=== PATIENT | female | born 1980 | race Caucasian/White ===

== ENCOUNTER 2016-11-17 11:22 | Emergency (ER) | payer OTHER ==
--- NOTE | ~2016-11-17 | CT4 ---
[facility] A Service of [facility] RADIOLOGY TEXT RESULTS PATIENT: STEPHANIE CANTU LOCATION: SED : 82 UNIT #: [id number] AGE: [address]: Tom Dawson MD SEX: F ORDER DR: [id number] [place] [id number] E MR#: [id number] Acc #: [id number] NAME: STEPHANIE CANTU : 1980 SEX: F STUDY DATE/TIME: 11/17/2016 13:46 UNIT: SED ROOM: STUDY DESCRIPTION: CT Abd and Pelv Wo Cont Attending Physician: Tom Dawson M.D. Referring Physician: Paty Ferguson A.P.R.N. Ordering Physician: Tom Dawson M.D. Primary Care Physician: Florence Butler M.D. MEDICAL IMAGING REPORT This report is preliminary unless electronic signature is present. EXAM CT abdomen and pelvis 11/17/2016 INDICATIONS Abdominal pain with vaginal discharge for 3 days. Fever and flank pain as well. Pain is 07:10. TECHNIQUE Axial images were obtained through the abdomen and pelvis following IV contrast administration. Multiplanar reformats were obtained. This CT exam was performed with one or more of the following radiation dose reduction techniques: automatic exposure control, adjustment of mA and/or kV according to patient size, and iterative reconstruction. COMPARISON STUDIES Comparison is made with 11/21/2007. FINDINGS CT ABDOMEN: The initial scan through the abdomen and pelvis is degraded by excessive patient motion and is nearly nondiagnostic. A repeat scan was obtained after some delay. Lung bases are clear. The gallbladder is unremarkable. There is indistinctness of the fat in the yadira hepatis which is fairly poorly characterized. However, it does appear to extend out along the falciform ligament anteriorly. Unfortunately, due to timing of the contrast bolus, the pancreas is not well evaluated in this location. This stranding could be secondary to pancreatitis in the pancreatic head and uncinate process. Primary duodenitis could potentially cause this. Correlation with laboratory data suggested. Right upper quadrant ultrasound may prove beneficial in the event of potential gallbladder pathology. The solid organs are otherwise within normal limits. The remainder of the unopacified GI tract is unremarkable. [facility] A Service of [facility] RADIOLOGY TEXT RESULTS PATIENT: STEPHANIE CANTU LOCATION: [facility] : 82 UNIT #: [id number] AGE: [address]: Tom Dawson MD SEX: F ORDER DR: CT PELVIS: Urinary bladder is normal. Solid pelvic organs are normal. The appendix is normal, as is the remainder of the unopacified GI tract. No free fluid. Note is made of degenerative disc disease at least at L4-5 and L5-S1. IMPRESSION 1. Unfortunately, the patient moved during the initial contrast enhanced run and those images are essentially nondiagnostic. A delayed run was obtained. 2. There is loss of the normal fat planes with some strandy appearance in the yadira hepatis which extends out along the falciform ligament. This is nonspecific, especially given timing of the bolus. However, differential considerations would include pancreatitis in the head and uncinate process, duodenitis, or potentially even cholecystitis although the gallbladder has a grossly normal appearance. Correlation with laboratory data recommended. Right upper quadrant ultrasound may prove beneficial. 3. The remainder of the abdomen and pelvis CT is normal, including the appendix. The solid pelvic organs appear normal. Dictated by... Gorge Carter Jr., M.D. THIS IS AN ELECTRONICALLY VERIFIED REPORT Gorge Carter Jr., M.D. at 11/17/2016 9:28 PM Ange TD: 11/17/2016 17:53 JOB #: [id number] MEDICAL IMAGING REPORT Page 1 of 1
[2016-11-17 11:15] LABS: URINE APPEARANCE CLEAR; URINE BLOOD 1+ (NEG); URINE COLOR YELLOW; URINE GLUCOSE NEG (NORM); URINE KETONE NEG (NEG); URINE LEUKOCYTE ESTERASE NEG (NEG); URINE NITRATE NEG (NEG); URINE PROTEIN NEG (NEG); URINE SOURCE CLEAN CATCH; URINE SPECIFIC GRAVITY 1.015 (1.003-1.035)
[2016-11-17 11:17] LABS: MICRO INDICATED? YES
[2016-11-17 11:18] LABS: URINE BILIRUBIN POS (NEG)
[2016-11-17 11:21] LABS: CULTURE INDICATED? NO; URINE BACTERIA NEG (NEG); URINE RBC 0-2 /[HPF] (0-2); URINE SQUAMOUS EPITHELIAL CELL MODERATE /[HPF]; URINE WBC NEG /[HPF] (0-5)
[~2016-11-17 11:22] MED LIST: ABILIFY30 MG PO; ACETAMINOPHEN PO; AMITRIPTYLINE H50 MG PO; AMITRYPTYLINE PO; ASPIRIN81 M1 PO; ATIVAN PO; BACTRIM DS TABL1 TA1 PO; CERTAGEN PO; CYMBALTA PO; CYMBALTA30 MG PO; DESYREL100 MG DOB; DICLOFENAC PO; FLEXERIL PO; FLEXERIL10 MG PO; FUROSEMIDE40 MG PO; HCTZ PO; HYDROCHLOROTHIA25 MG PO; IBUPROFEN PO; IBUPROFEN800 MG PO; INDERAL20 MG PO; KLONOPIN PO; KLONOPIN1 MG PO; LASIX PO; LORTAB 10-3251 EACH PO; LORTAB 5/500 TA1 TA1 PO; LORTAB 7.5-5001 TAB PO; LYRICA PO; LYRICA75 MG PO; MOTRIN400 MG PO; MULTI-DAY VITAM1 TAB PO; MYLANTA LIQUID355 M1 PO; NEURONTIN PO; NEURONTIN800 MG DOB; NEURONTIN800 MG PO; NICOTINE TRANSD21 MG TOP; NITROGLYGERIN0.4 MG SL; NO MEDICATIONS; NORCO 7.5-3251 EACH PO; PAIN RELIEF325 MG PO; PATANOL5 ML OP; PERCOCET PO; PREDNISONE PO; PROTONIX PO; PROZAC PO; TOPAMAX PO; TOPAMAX50 MG PO; ULTRAM PO; VICODIN 5/500 T1 TAB PO; VOLTAREN5 ML PO; VOLTAREN75 MG PO
[2016-11-17 11:27] LABS: BASOPHIL# 0.1 X10e3 (0-0.3); BASOPHIL% 2.1 % (0-2.5); EOSINOPHIL# 0.1 X10e3 (0-0.7); EOSINOPHIL% 3.1 % (0.0-7.0); HEMOGLOBIN 15.1 gm/dL (12.0-16.0); LYMPHOCYTE# 0.8 X10e3 (1.0-3.5); LYMPHOCYTE% 24.6 % (17.0-45.0); MEAN CORPUSCULAR HEMOGLOBIN 30.3 PG (28-34); MEAN CORPUSCULAR HGB CONC 32.9 g/dL (30-36); MEAN PLATELET VOLUME 8.8 FL (6.5-11.5); MONOCYTE# 0.4 X10e3 (0-1.0); MONOCYTE% 10.8 % (3.0-12.0); NEUTROPHIL% 59.4 % (40-75); PLATELET COUNT 143 X10e3 (140-420); RED CELL DISTRIBUTION WIDTH 13.8 % (11.0-15.5); WHITE BLOOD COUNT 3.3 X10e3 (4.0-10.5)
[2016-11-17 11:33] LABS: DIFF IND NO
[2016-11-17 11:57] LABS: ALBUMIN SERUM 3.9 g/dL (3.5-5.0); BILIRUBIN, DIRECT 3.2 mg/dL (0.0-0.2); BILIRUBIN,INDIRECT 1.4 mg/dL (0.0-0.9); BILIRUBIN,TOTAL 4.6 mg/dL (0.2-2.0); BUN/CREATININE RATIO 46.66; CALCIUM SERUM 8.7 mg/dL (8.4-10.2); CREATININE SERUM 0.3 mg/dL (0.6-1.4); GLOM FILT RATE Estimated 149.4 mL/min (>60); POTASSIUM 3.8 mmol/L (3.5-5.1); PROTEIN TOTAL SERUM 7.2 g/dL (6.0-8.3)
[2016-11-18 20:16] LABS: CHLAMYDIA TRACH Not Detected (Not Detected); N GONOR Not Detected (Not Detected)
[2016-11-21 21:55] LABS: HA AB IGM (HEPPAN) Nonreactive (Nonreactive); HB CORE AB IGM (HEPPAN) Nonreactive (Nonreactive); HB S AG (HEPPAN) Nonreactive (Nonreactive); HEP C AB (HEPPAN) Reactive (Nonreactive)
== END 2016-11-17 16:12 | disposition left against medical advice (07) ==
LOC: SED 11:22
PROVIDERS: Emergency Medicine; Nurse Practitioner
DX: R74.0 Nonspecific elevation of levels of transaminase and lactic acid dehydrogenase [LDH] (principal); I10 Essential (primary) hypertension; Z98.51 Tubal ligation status; F17.210 Nicotine dependence, cigarettes, uncomplicated
CPT/HCPCS: 36415; 74176; 80048; 80074; 80076; 81003; 82150; 83690; 84703; 85025; 87210; 87491; 87522; 87591; 87808; 87905; 96361; 96374; 96375; 99291; C9113; G0480; J1200; J1885

== ENCOUNTER 2016-11-17 23:19 | Inpatient (IN) | payer OTHER ==
--- NOTE | ~2016-11-17 | US5 ---
[facility] A Service of [facility] RADIOLOGY TEXT RESULTS PATIENT: STEPHANIE CANTU LOCATION: [facility] 303- : 82 UNIT #: [id number] AGE: [address]: Vonda Hughes MD SEX: F ORDER DR: [id number] [facility] [address] [facility]. [place], [place] [address] [id number] I MR#: [id number] Acc #: [id number] NAME: STEPHANIE CANTU : 1980 SEX: F STUDY DATE/TIME: 11/18/2016 9:13 UNIT: A U ROOM: [facility] STUDY DESCRIPTION: US Abdominal Complete Attending Physician: Vonda Hughes M.D. Ordering Physician: Rainer Felix M.D. Primary Care Physician: Florence Butler M.D. MEDICAL IMAGING REPORT This report is preliminary unless electronic signature is present EXAM Abdominal sonogram HISTORY Elevated liver enzymes. Abdominal pain in the epigastric area for the past 5 days with nausea and vomiting. TECHNIQUE Ultrasound evaluation was performed with francis-scale and color-flow imaging with Doppler spectral waveform analysis. FINDINGS In the liver, there is a small hyperechoic mass in the right hepatic lobe measuring 1 cm likely representing hemangioma given its echo pattern. There is no evidence of suspicious liver mass or ductal dilatation. The pancreas is normal in size. There is no evidence of ascites. The gallbladder is contracted and contains multiple shadowing stones. The common bile duct diameter is 2-3 mm. The right kidney shows no evidence of mass, cyst or hydronephrosis. Portal vein and inferior vena cava flow is normal with normal Doppler. The left kidney is not obstructed. The spleen is normal in size. IMPRESSION Cholelithiasis. A negative Martin's sign. No fluid around the gallbladder. No evidence of bile duct dilatation. Small incidental liver lesion likely hemangioma. Otherwise negative study. Dictated by... Gorge Olivares M.D. [facility] A Service of [facility] RADIOLOGY TEXT RESULTS PATIENT: STEPHANIE CANTU LOCATION: [facility] 303-01 : 82 UNIT #: [id number] AGE: [address]: Vonda Hughes MD SEX: F ORDER DR: THIS IS AN ELECTRONICALLY VERIFIED REPORT Gorge Olivares M.D. at 11/21/2016 9:46 AM Nahum TD: 11/18/2016 21:42 JOB #: [id number] MEDICAL IMAGING REPORT Page 1 of 1 COPY
--- NOTE | ~2016-11-17 | HP ---
Unit #: [id number] #: [id number] Patient: STEPHANIE CANTU [id number] [address] [place], [place] [address] [id number] I MR#: [id number] NAME: STEPHANIE CANTU ROOM: 303 Age: 36 Sex: F Admission Date: 11/18/2016 : 1980 Attending Physician: Vonda Hughes M.D. Primary Care Physician: Florence Butler M.D. HISTORY AND PHYSICAL CHIEF COMPLAINT Abdominal pain, nausea, vomiting, abnormal LFT. DISCUSSION This is a 36-year-old female, who has a past medical history significant for history of hepatitis C, anxiety/depression, fibromyalgia, chronic pain syndrome, history of opiate dependence in the past, used to be on heroin but clean for two years, history of arthritis, tobacco abuse. She presented to the [facility] emergency room with chief complaint of having abdominal pain, nausea, vomiting. She was found to have abnormal LFT, AST was 2,053, ALT 3,105, and she was advised for admission, she left AGAINST MEDICAL ADVICE, and again she came here to [facility] emergency room with similar symptoms, abdominal pain and fever. She said that she had been having fever for the last three days and she had been having severe upper abdominal pain which she described at more intensity, constant, she described also nausea, vomiting x3 times today, denied chest pain, denies diarrhea, constipation, or any other complaint. PAST MEDICAL HISTORY 1. History of hepatitis C. 2. Depression/anxiety. 3. Fibromyalgia. 4. Chronic pain disorder. 5. History of opiate dependence with heroin use but she said she had been clean for two years. 6. History of arthritis. PAST SURGICAL HISTORY 1. History of section. 2. Tubal ligation. ALLERGIES No known drug allergies. HOME MEDICATIONS She takes propranolol, Topamax, ibuprofen. FAMILY HISTORY Significant for history of diabetes in the family, leukemia in her father. SOCIAL HISTORY She denies alcohol, she smokes one pack per day, she used to use marijuana on a daily basis. She used to use methamphetamine and heroin but she said Unit #: [id number] #: [id number] Patient: STEPHANIE CANTU she has been clean for two years. REVIEW OF SYSTEMS All review of systems negative except as in the history of present illness. PHYSICAL EXAMINATION GENERAL: Young female lying in the bed comfortably, currently not in any distress. She is alert, awake, and oriented x3, not in any distress. VITAL SIGNS: Current vitals are the following, temperature 98.5, heart rate 115, respiratory rate 16, blood pressure 130/97. HEENT EXAMINATION: Pupils equal reactive to light and accommodation. NECK: Supple. No jugular venous distention. HEART: S1 and S2, regular rate and rhythm. LUNGS: Clear to auscultation bilaterally. No rhonchi. No wheezing. ABDOMEN: Soft, mild epigastric tenderness. No guarding. No rigidity. EXTREMITIES: Inspection normal. No cyanosis, no clubbing, and no edema. NEUROLOGIC: No focal neurologic deficit. DIAGNOSTIC STUDIES LABORATORY: Laboratory workup in the following, Tylenol level she has less than 10. Electrolytes, sodium 138, potassium 3.8, chloride 104, glucose 100, BUN 14, creatinine 0.3, AST 2,053, ALT 3,105, alkaline phosphatase 208, total bilirubin 4.6, direct 3.2, indirect 1.4. Amylase 15, lipase 32. White count 3.3, hemoglobin 15, hematocrit 46, platelets 143. Urinalysis is negative. test negative. IMAGING: She had a CT scan of the abdomen which is nondiagnostic secondary to patient moved during initial contrast enhanced, is inconclusive CT scan. ASSESSMENT/PLAN 1. Abdominal pain with acute hepatitis. Admit the patient. The patient started on morphine for pain control, IV Protonix and IV fluids. Ask Dr. Cannon to evaluate, will get ultrasound of the gallbladder and liver. 2. History of hepatitis C, she has never been treated so far. 3. History of anxiety/depression. 4. Fibromyalgia. 5. Chronic pain syndrome. 6. History of opiate dependence but she said that she had been not using heroin for two years now. 7. History of arthritis. 8. Tobacco and marijuana use. 9. DVT prophylaxis, will place the patient on SCD. Dictated by Viky Wagoner TD: 11/18/2016 11:39 JOB #: [id number] Unit #: [id number] #: [id number] Patient: STEPHANIE CANTU HISTORY AND PHYSICAL Page 1 of 1 X X HISTORY AND PHYSICAL
--- NOTE | ~2016-11-17 | CO ---
Unit #: [id number] #: [id number] Patient: STEPHANIE NORMAN [id number] [facility] [address] [place], [place] [address] [id number] I MR#: [id number] NAME: STEPHANIE NORMAN ROOM: 303 Age: 36 Sex: F Admission Date: 11/18/2016 : 1980 Attending Physician: Vonda Hughes M.D. Primary Care Physician: Florence Butler M.D. Consultation Date: 11/18/2016 CONSULTATION REPORT PRIMARY CARE PHYSICIAN Florence Butler M.D. REASON FOR CONSULTATION Abnormal LFTs and abdominal pain. HISTORY OF PRESENT ILLNESS Ms. Norman is a 36-year-old white female. The patient has presented with history of upper abdominal pain, which is felt in the right upper quadrant and epigastric area. She presented along with nausea and vomiting and abdominal pain to the [facility] Emergency Room and was found to have elevated transaminases. AST and ALT were 2000 and 3000 respectively and she was advised to further admission. She left against medical advice and came back [facility] for similar symptoms along with low-grade fever. She has vomited couple of times, but this is since resolved. She denies any chest pains. No history of diarrhea or change in bowel movements. PAST MEDICAL HISTORY Significant for history of anxiety and depression, fibromyalgia, history of hepatitis C. The patient says she is not aware the issues of hepatitis C. In fact, she tells me that she was seen in the [place] [facility] after being referred for having hepatitis and told she did not have one, also has chronic pain disorder, history of polysubstance abuse, in fact, she used intravenous heroin. She has been the using heroin until couple of days ago. History for arthritis. PAST SURGICAL HISTORY Included tubal ligation and section. MEDICATIONS At home, she takes Topamax, ibuprofen, and propranolol. ALLERGIES Does not have any drug allergies. FAMILY HISTORY Significant for diabetes. No family history of colon, pancreatic cancer, or liver disease. SOCIAL HISTORY She does smoke a pack of cigarette per day. She chews marijuana use and methamphetamine and heroin. Unit #: [id number] #: [id number] Patient: STEPHANIE NORMAN REVIEW OF SYSTEMS Detailed review of organ systems does not reveal any recent weight loss. No history of fever, chills, or rigors. No history of headache, seizures, chest pain, or syncope. No history of cough, expectoration, or hemoptysis. No history of dysuria, hematuria, or pyuria. No history of focal seizures or extremity weakness. Rest of the review of systems is unremarkable. PHYSICAL EXAMINATION GENERAL: She is alert and oriented, comfortable, and ambulatory. VITAL SIGNS: Stable with a temperature of 98.1, pulse are 64 per minute and regular, respiratory rate is 18, blood pressure 145/86. She weighs 177 pounds and her baseline weight has been about 180 pounds the past. HEENT: She has no pallor, icterus, lymphadenopathy, or peripheral edema. CARDIOVASCULAR: Normal heart sounds. No murmurs on auscultation. LUNGS: Reveal normal breath sounds. Good air entry. ABDOMEN: Soft, obese, and nontender. Liver and spleen are not palpable. Bowel sounds normal. DIAGNOSTIC STUDIES LABORATORY RESULTS: Shows a peak AST and ALT of 2000 and 3000 yesterday and today there is a declining trend. Alkaline phosphatase surprised to be normal at 189. Bilirubin is also normal. Albumin is 3.2. BUN and creatinine are normal. Glucose is [place] [address] and normal platelet count. The patient has relative lymphocytosis. The patient's INR is 1.0. Tox screen is positive for amphetamines, marijuana, and opiates. Urinalysis shows 1+ blood, otherwise normal. CLINICAL IMPRESSION Looking the patient's serologies, she has had hepatitis C positivity in the past on circumstances, she need to have antiviral treatment for hepatitis C and needs to be followed up at [facility], where she has been following up in the past. It is noteworthy the patient is very adamant and irritated that she was never told that she has hepatitis C and it is surprise to her. I have explained her that this is being a problem that from her records, at least she has hepatitis C positive from our records for at least 2 years may be a lot longer than that she has been using intravenous drug use for long time. Also, the issue of treatment as an urgent matter is not amenable as this is not emergent matter; however, needs to be resolved by quantitative PCR and treatment initiation, provided the patient can assure that she will not be using any percutaneous method of recreational drug use in the future. The declining trend of the transaminases suggests that the hepatitis will resolve spontaneously that the acute hepatitis part will resolve spontaneously. Thank you for asking me to see this patient. I appreciate the consult. Dictated byViky Sosa/ramesh TD: 11/22/2016 01:01 JOB #: [id number] Unit #: [id number] #: [id number] Patient: STEPHANIE NORMAN CONSULTATION REPORT Page 1 of 1 X Eduardo Cannon MD X CONSULTATION REPORT
[2016-11-18 00:40] LABS: BASOPHIL# 0.1 X10e3 (0-0.3); BASOPHIL% 0.8 % (0-2.5); DIFF IND NO; EOSINOPHIL# 0.1 X10e3 (0-0.7); EOSINOPHIL% 2.3 % (0.0-7.0); HEMATOCRIT 42.2 % (35.0-45.0); HEMOGLOBIN 13.9 gm/dL (12.0-16.0); LYMPHOCYTE% 32.2 % (17.0-45.0); MEAN CELL VOLUME 91.2 FL (83-96); MEAN CORPUSCULAR HEMOGLOBIN 30.1 PG (28-34); MEAN PLATELET VOLUME 9.6 FL (6.5-11.5); MONOCYTE# 0.6 X10e3 (0-1.0); MONOCYTE% 9.5 % (3.0-12.0); NEUTROPHIL# 3.4 X10e3 (1.5-7.1); NEUTROPHIL% 55.2 % (40-75); PLATELET COUNT 139 X10e3 (140-420); RED BLOOD COUNT 4.63 X10e (3.90-5.30); RED CELL DISTRIBUTION WIDTH 13.9 % (11.0-15.5); WHITE BLOOD COUNT 6.2 X10e3 (4.0-10.5)
[2016-11-18 01:14] LABS: ALBUMIN SERUM 3.6 g/dL (3.5-5.0); BILIRUBIN, DIRECT 2.5 mg/dL (0.0-0.2); BILIRUBIN,INDIRECT 1.4 mg/dL (0.0-0.9); BILIRUBIN,TOTAL 3.9 mg/dL (0.2-2.0); CALCIUM SERUM 8.5 mg/dL (8.4-10.2); CREATININE SERUM 0.5 mg/dL (0.6-1.4); GLOM FILT RATE Estimated 126.3 mL/min (>60); POTASSIUM 3.7 mmol/L (3.5-5.1); PROTEIN TOTAL SERUM 6.6 g/dL (6.0-8.3)
[2016-11-18 09:03] LABS: BASOPHIL# 0.1 X10e3 (0-0.3); BASOPHIL% 1.3 % (0-2.5); EOSINOPHIL# 0.1 X10e3 (0-0.7); EOSINOPHIL% 1.8 % (0.0-7.0); HEMATOCRIT 42.3 % (35.0-45.0); HEMOGLOBIN 13.7 gm/dL (12.0-16.0); LYMPHOCYTE# 3.1 X10e3 (1.0-3.5); LYMPHOCYTE% 45.6 % (17.0-45.0); MEAN CELL VOLUME 91.6 FL (83-96); MEAN CORPUSCULAR HEMOGLOBIN 29.7 PG (28-34); MEAN CORPUSCULAR HGB CONC 32.4 g/dL (30-36); MEAN PLATELET VOLUME 9.4 FL (6.5-11.5); MONOCYTE# 0.5 X10e3 (0-1.0); MONOCYTE% 7.8 % (3.0-12.0); NEUTROPHIL% 43.5 % (40-75); PLATELET COUNT 142 X10e3 (140-420); RED BLOOD COUNT 4.62 X10e (3.90-5.30); RED CELL DISTRIBUTION WIDTH 13.9 % (11.0-15.5); WHITE BLOOD COUNT 6.9 X10e3 (4.0-10.5)
[2016-11-18 09:04] LABS: DIFF IND YES
[2016-11-18 09:33] LABS: ALBUMIN SERUM 3.4 g/dL (3.5-5.0); BILIRUBIN, DIRECT 1.9 mg/dL (0.0-0.2); BILIRUBIN,TOTAL 2.9 mg/dL (0.2-2.0); BUN/CREATININE RATIO 36.66; CALCIUM SERUM 8.3 mg/dL (8.4-10.2); CREATININE SERUM 0.3 mg/dL (0.6-1.4); GLOM FILT RATE Estimated 149.4 mL/min (>60); PROTEIN TOTAL SERUM 6.4 g/dL (6.0-8.3)
[2016-11-18 09:36] LABS: ANISOCYTOSIS SL; PLATELET ESTIMATE NORMAL (NORMAL)
[2016-11-18 09:55] LABS: AMPHETAMINE POS (NEG); BARBITURATES NEG (NEG); BENZODIAZEPINES NEG (NEG); COCAINE NEG (NEG); MARIJUANA POS (NEG); OPIATES POS (NEG); TRICYCLIC ANTIDEPRESSANTS NEG (NEG); U METHADONE NEG (NEG)
[2016-11-19 05:24] LABS: HEMATOCRIT 40.3 % (35.0-45.0); HEMOGLOBIN 12.9 gm/dL (12.0-16.0); MEAN CELL VOLUME 91.4 FL (83-96); MEAN CORPUSCULAR HEMOGLOBIN 29.2 PG (28-34); MEAN PLATELET VOLUME 9.8 FL (6.5-11.5); RED BLOOD COUNT 4.41 X10e (3.90-5.30); RED CELL DISTRIBUTION WIDTH 14.1 % (11.0-15.5)
[2016-11-19 05:25] LABS: WHITE BLOOD COUNT 11.2 X10e3 (4.0-10.5)
[2016-11-19 05:30] LABS: PROTHROMBIN TIME (PATIENT) 10.2 SECONDS (9.6-11.5)
[2016-11-19 06:06] LABS: ALBUMIN SERUM 3.2 g/dL (3.5-5.0); BUN/CREATININE RATIO 13.33; CALCIUM SERUM 8.2 mg/dL (8.4-10.2); CREATININE SERUM 0.6 mg/dL (0.6-1.4); GLOM FILT RATE Estimated 118.9 mL/min (>60); PROTEIN TOTAL SERUM 5.8 g/dL (6.0-8.3)
[2016-11-19] MEDS ORDERED: INDERAL20 MG PO (13:21)
== END 2016-11-19 15:17 | disposition home or self-care (01) | DRG 442 ==
LOC: CED 23:19 → CEDOF 11-18 00:06 → C3A PCU 11-18 02:13
PROVIDERS: Emergency Medicine; Internal Medicine; Internal Medicine Gastroenterology
DX: B17.9 Acute viral hepatitis, unspecified (principal); E87.2 Acidosis; D69.6 Thrombocytopenia, unspecified; F17.200 Nicotine dependence, unspecified, uncomplicated; F41.9 Anxiety disorder, unspecified; F32.9 Major depressive disorder, single episode, unspecified; M79.7 Fibromyalgia; G89.4 Chronic pain syndrome; Z83.3 Family history of diabetes mellitus; Z80.6 Family history of leukemia; F19.10 Other psychoactive substance abuse, uncomplicated; F12.10 Cannabis abuse, uncomplicated
CPT/HCPCS: 76700; 80048; 80053; 80076; 80307; 85025; 85027; 85610; 86645; 86665; 86695; 86696; 87522; 87806; 99285; C9113; J2270; J2405

== ENCOUNTER 2017-03-25 14:01 | Inpatient (IN) | payer OTHER ==
[~2017-03-25] VITALS: Ht 157.5 cm; Wt 77.1 kg
--- NOTE | ~2017-03-25 | DS ---
Unit #: [id number] #: [id number] Patient: STEPHANIE CANTU [id number] [facility] [address] [place] [address] [id number] I MR#: [id number] NAME: STEPHANIE CANTU ROOM: 81 Age: 36 Sex: F Admission Date: 03/25/2017 : 1980 Discharge Date: 03/28/2017 Attending Physician: Luis Ba M.D. Primary Care Physician: Florence Butler M.D. DISCHARGE SUMMARY REASON FOR ADMISSION The patient is a 36-year-old white female, admitted to the hospital with complaints of depressed mood, suicidal ideation, and abuse of crack cocaine, meth, and cannabis. HOSPITAL COURSE The patient was admitted to the [address] [place] [address] unit, but transferred to the [facility] unit. Her participation within therapeutic milieu left much to be desired. The patient was initially begun on Cymbalta with the belief that this medication would be effective in addressing her symptoms of chronic pain. However, the patient at the time of discharge requested reinitiation of Prozac and BuSpar. By 03/28/2017, the patient exhibited no signs or symptoms of withdrawal. She stated that she had an appointment the following day "for housing." Discharge was ordered. FINAL DIAGNOSES Methamphetamine use disorder, cocaine use disorder, cannabis use disorder, dysthymic disorder. DISPOSITION ON DISCHARGE The patient is discharged on the following medications; Prozac 20 mg daily for depression, BuSpar 10 mg b.i.d. for anxiety. DISCHARGE INSTRUCTIONS No dietary or physical restrictions were placed on the patient at the time of discharge. FOLLOWUP Followup will take place through the auspices of community mental health resources. PROGNOSIS The patient's prognosis is considered fair. Dictated by... Luis Ba M.D. CB/vickyl TD: 03/28/2017 23:37 JOB #: [id number] Unit #: [id number] #: [id number] Patient: STEPHANIE CANTU DISCHARGE SUMMARY Page 1 of 1 X Luis Ba MD X DISCHARGE SUMMARY
--- NOTE | ~2017-03-25 | HP ---
Unit #: [id number] #: [id number] Patient: STEPHANIE CANTU [id number] [place] [address] [id number] I MR#: [id number] NAME: STEPHANIE CANTU ROOM: P181 Age: 36 Sex: F Admission Date: 03/25/2017 : 1980 Attending Physician: Luis Ba M.D. Admitting Physician: Luis Ba M.D. Primary Care Physician: Florence Bulter M.D. HISTORY AND PHYSICAL HISTORY OF PRESENT ILLNESS Stephanie is a 36 year old, [facility] because of her polysubstance abuse which includes IV meth, crack cocaine, and marijuana. PAST MEDICAL HISTORY 1. Long history of illicit substance abuse to include IV methamphetamine. 2. Hepatitis C. 3. High blood pressure. PAST SURGICAL HISTORY 1. section x3. 2. Tubal ligation. ALLERGIES No known drug allergies. SOCIAL HISTORY She smokes one pack per day, drinks alcohol on occasion, and admits to a history of illicit substance abuse to include IV drugs, and smoking crack cocaine. FAMILY HISTORY Medically noncontributory. REVIEW OF SYSTEMS CONSTITUTIONAL: No fever or chills. HEENT: Denies any sore throat, ear pain or runny nose. CARDIOVASCULAR: Denies chest pain, irregular heart rhythm or palpitations. CHEST: Denies shortness of breath or cough. No hemoptysis. GASTROINTESTINAL: Denies nausea, vomiting, diarrhea or chronic constipation. ENDOCRINE: Denies history of increased thirst or urination. No recent significant weight loss or gain. GENITOURINARY: Denies dysuria, frequency, or hematuria. SKIN: Denies any rashes. HEMATOLOGIC: Denies history of increased bleeding or bruising. MUSCULOSKELETAL: Denies any hot, swollen joints. No generalized muscle pain. NEUROLOGIC: Denies problems with vision or speech. No frequent, severe headaches. No numbness, tingling or weakness in any extremities. Denies loss of bladder or bowel control. CURRENT MEDICATIONS Unit #: [id number] #: [id number] Patient: STEPHANIE CANTU 1. Detox protocol 2. Cymbalta 30 mg daily 3. Singulair 10 mg daily 4. Topamax 50 mg b.i.d. 5. Inderal 20 mg t.i.d. PHYSICAL EXAMINATION GENERAL: Alert, well-nourished, no apparent distress. VITAL SIGNS: blood pressure 100/62, heart rate 80, respirations 16, and temperature 98.6. WEIGHT: 170 pounds. HEIGHT: 5 feet 2 inches. SKIN: Warm and dry without rash. She does have a number of blisters along her lower abdomen. These are slightly tender. HEENT: Normocephalic. TMs not viewed. Oral and nasal passages clear. Conjunctivae clear. PERRLA. EOMs intact. NECK: Supple without lymphadenopathy or thyromegaly. HEART: Regular rate and rhythm without murmur. LUNGS: Clear. ABDOMEN: Soft, nontender. : Not done. EXTREMITIES: No evidence of cyanosis, clubbing or edema. Moves all without focal deficit. NEUROLOGICAL: Grossly within normal limits. Cranial Nerves: II: Visual woodward are intact. III, IV AND : Extraocular movements are intact. Pupils are equal, round and reactive to light. V: Facial sensation is grossly normal. VII: Facial movements and expression are normal. VIII: Auditory acuity grossly intact. IX, X: Uvula is midline. Phonation is normal. XI: Patient shrugs shoulders and turns head normally. XII: Tongue protrudes in the midline. Sensory and Motor Function: Sensory and motor sensation is grossly normal. Motor: moves all extremities well. Coordination: Gait is normal. Deep Tendon Reflexes: Intact. IMPRESSION 1. Psychiatric admission. 2. History of illicit substance abuse to include smoking crack cocaine. 3. Second degree owens along her lower abdomen. This most likely is from her smoking crack pipe. RECOMMENDATIONS Psychiatric, per psychiatrist. MEDICAL 1. I see no contraindications to participating in facility's activities. 2. Keep the blistered areas clean with soap and water. No further Rx. 3. Detox per protocol. 4. Continue Topamax and Inderal. MEDICAL PROGNOSIS Good. MEDICAL CONDITION Stable. Unit #: [id number] #: [id number] Patient: STEPHANIE CANUT Dictated by... Mary Callahan P.A.-C. for Viky Abraham/addis TD: 03/27/2017 12:33 JOB #: [id number] HISTORY AND PHYSICAL Page 1 of 1 X Mary Callahan HISTORY AND PHYSICAL
--- NOTE | ~2017-03-25 | PA ---
Unit #: [id number] #: [id number] Patient: STEPHANIE CANTU [id number] [place] [address] [id number] I MR#: [id number] NAME: STEPHANIE CANTU ROOM: P181 Age: 36 Sex: F Admission Date: 03/25/2017 : 1980 Date of Assessment: 03/26/2017 Attending Physician: Luis Ba M.D. Admitting Physician: Luis Ba M.D. Primary Care Physician: Florence Butler M.D. PSYCHIATRIC ASSESSMENT IDENTIFYING INFORMATION The patient is a 36-year-old homeless white female with a history of polysubstance dependence, depression and suicidal ideation. INFORMANT(S) Patient and the chart RELIABILITY Good. CHIEF COMPLAINT Hit bottom HISTORY OF PRESENT ILLNESS The patient is a 36-year-old white female who is currently homeless. She reports abuse of multiple illicit substances including crack cocaine, methamphetamine and heroin as well as alcohol. The patient reports that she is presently homeless secondary to her ongoing substance use. She admits to an intravenous substance use. The patient was reporting positive suicidal ideation and does have a history of prior suicide attempts. Her last hospitalization to this facility was in 2014. She did not maintain sobriety for any significant period of time thereafter. At that time the patient was discharged on Abilify and Cymbalta but is currently noncompliant with psychotropic medications. When seen today the patient continues to complain of significant symptoms of withdrawal and continues to endorse positive suicidal ideation. PAST PSYCHIATRIC HISTORY As above. PAST MEDICAL HISTORY Significant for a history of hypertension and environmental allergies. MEDICATIONS The patient's current medications include only Topamax and Inderal. She also reportedly takes Singulair but has been noncompliant with this medication. She was recently prescribed Prozac but "never picked it up." ALLERGIES None. FAMILY HISTORY Noncontributory. Unit #: [id number] #: [id number] Patient: STEPHANIE CANTU SOCIAL HISTORY The patient is presently homeless. She reports substance use as noted previously and is a smoker. MENTAL STATUS EXAMINATION At this time reveals the patient to be a well-developed, well-nourished white female, appearing her stated age. She appears to be in mild physical distress related to opioid withdrawal during evaluation. She is awake, alert, and oriented in all spheres. Her mood is dysphoric. Her affect blunted. Speech is generally relevant and coherent. There are no gross deficits in memory or cognition noted. Intelligence is judged to be in the average range based on fund of knowledge. The patient is cooperative throughout the interview. She is currently reporting positive suicidal ideation. She denies homicidal ideation. She denies any psychotic symptoms. Her judgment and insight appear to be intact. The patient's assets, motivation for change. Liabilities - homelessness, lack of resources. DIAGNOSTIC IMPRESSION 1. Methamphetamine use disorder. 2. Alcohol use disorder. 3. Cocaine use disorder. 4. Opioid use disorder. 5. Hypertension. 6. Environmental allergies. TREATMENT PLAN The patient remains hospitalized for safety and stabilization. We will transfer her to the [address] [place] [address] for chemical dependence treatment and routine detoxification protocols have been initiated as have suicidal precautions. The patient was last discharged from this facility in 2014 and was prescribed Abilify and Cymbalta at that time. We will go ahead and restart Cymbalta at a 30 mg dose and consider addition of Abilify as the patient's hospital course progresses. ESTIMATED LENGTH OF STAY Three to five days. Dictated by... Luis Ba M.D. CB/dashawn TD: 03/26/2017 20:44 JOB #: [id number] Unit #: [id number] #: [id number] Patient: STEPHANIE CANTU PSYCHIATRIC ASSESSMENT Page 1 of 1 X Luis Ba MD X PSYCHIATRIC ASSESSMENT
--- NOTE | ~2017-03-25 | PN ---
Unit #: [id number] #: [id number] Patient: STEPHANIE CANTU [id number] [facility] [address] [place] [address] [id number] I MR#: [id number] NAME: STEPHANIE CANTU ROOM: P181 Age: 36 Sex: F Admission Date: 03/25/2017 : 1980 Attending Physician: Luis Ba M.D. Admitting Physician: Luis Ba M.D. Primary Care Physician: Viky Medina PROGRESS NOTES DATE 03/27/2017 DISCUSSION The patient is abed today, complaining of "crippling depression." She continues to endorse positive suicidal ideation and appears to be in significant physical distress related to opioid withdrawal. We continue her trial of Topamax and Cymbalta, and I have encouraged her to increase her participation within the therapeutic milieu once she is able to do so. Dictated by... Luis Ba M.D. CB/zeny TD: 03/27/2017 14:37 JOB #: [id number] [facility] PROGRESS NOTES Page 1 of 1 X Luis Ba MD X PROGRESS NOTE
[2017-03-26 09:39] LABS: BASOPHIL% 0.4 % (0-2.5); EOSINOPHIL% 0.6 % (0.0-7.0); HEMATOCRIT 39.1 % (35.0-45.0); HEMOGLOBIN 13.1 gm/dL (12.0-16.0); LYMPHOCYTE# 2.3 X10e3 (1.0-3.5); MEAN CELL VOLUME 91.3 FL (83-96); MEAN CORPUSCULAR HEMOGLOBIN 30.7 PG (28-34); MEAN CORPUSCULAR HGB CONC 33.6 g/dL (30-36); MEAN PLATELET VOLUME 9.2 FL (6.5-11.5); MONOCYTE# 0.4 X10e3 (0-1.0); PLATELET COUNT 263 X10e3 (140-420); RED BLOOD COUNT 4.28 X10e (3.90-5.30); RED CELL DISTRIBUTION WIDTH 13.9 % (11.0-15.5); WHITE BLOOD COUNT 8.8 X10e3 (4.0-10.5)
[2017-03-26 09:43] LABS: DIFF IND NO
[2017-03-26 09:45] LABS: URINE APPEARANCE CLEAR; URINE BILIRUBIN NEG (NEG); URINE BLOOD NEG (NEG); URINE COLOR YELLOW; URINE GLUCOSE NEG (NEG); URINE KETONE NEG (NEG); URINE LEUKOCYTE ESTERASE NEG (NEG); URINE NITRATE NEG (NEG); URINE PH 6.5 (5-8); URINE PROTEIN NEG (NEG); URINE SPECIFIC GRAVITY 1.019 (1.003-1.035)
[2017-03-26 09:58] LABS: AMPHETAMINE POS (NEG); BARBITURATES NEG (NEG); BENZODIAZEPINES NEG (NEG); COCAINE POS (NEG); MARIJUANA NEG (NEG); OPIATES POS (NEG); TRICYCLIC ANTIDEPRESSANTS NEG (NEG); U METHADONE NEG (NEG)
[2017-03-26 10:22] LABS: ALBUMIN SERUM 3.6 g/dL (3.5-5.0); BILIRUBIN,TOTAL 0.3 mg/dL (0.2-2.0); BUN/CREATININE RATIO 22.85; CREATININE SERUM 0.7 mg/dL (0.6-1.4); POTASSIUM 3.9 mmol/L (3.5-5.1)
[2017-03-31 13:30] LABS: HA AB IGM (HEPPAN) Nonreactive (()); HB CORE AB IGM (HEPPAN) Nonreactive (Nonreactive); HB S AG (HEPPAN) Nonreactive (Nonreactive); HEP C AB (HEPPAN) Reactive (Nonreactive)
== END 2017-03-28 16:35 | DRG 897 ==
LOC: P2L 14:01 → POF 14:01 → P1E 14:01 → P2L 15:28 → P1E 03-26 17:58
PROVIDERS: Specialist
PROC: HZ2ZZZZ Detoxification Services for Substance Abuse Treatment (ICD-10-PCS; principal; 2017-03-25)
DX: F15.20 Other stimulant dependence, uncomplicated (principal); F11.20 Opioid dependence, uncomplicated; R45.851 Suicidal ideations; F14.20 Cocaine dependence, uncomplicated; F10.20 Alcohol dependence, uncomplicated; I10 Essential (primary) hypertension; F17.200 Nicotine dependence, unspecified, uncomplicated
CPT/HCPCS: 80053; 80074; 80307; 81003; 84703; 85025; 86592; 87522; 87806